=== PATIENT | female | born 1980 | race Two or more races ===

== ENCOUNTER 2022-05-14 02:25 | Inpatient (IN) | payer OTHER ==
[~2022-05-14] VITALS: Ht 157.5 cm; Wt 69.9 kg
[~2022-05-14 02:25] MED LIST: ALLEGRA ALLERG180 MG PO; LEVAQUIN750 MG PO
--- NOTE | 2022-05-14 02:34 | NUR ---
PATIENT IS RECIEVED SAYING THAT SHE FEELS DIZZY AND WEAK AFTER BEING DIAGNOSED WITH MYCOPLASM 5 DAYS AGO.
--- NOTE | 2022-05-14 03:05 | NUR ---
SE ORIENTA PTE SOBRE TX MEDICO EL CUAL REFIERE ENTENDER.SE LE EXTRAEN MUESTRAS BAJO MEDIDAS ASEPTICAS,SE CANALIZA Y SE ADMINISTRA MEDICAMENTO LILIANE ORDEN MEDICA.
--- NOTE | 2022-05-14 07:32 | NUR ---
SE RECIBE PTE DEL TURNO ANTERIOR, FEMINA DE 41 YRS ALERTA Y ORIENTADA X3 EN CAMA CON BARANDAS ELEVADAS X2 Y GIBSON DE IDENTIFICACION. PTE CON 0.9% NSS BAJANDO A 150 ML/HRS CON VENOPUNCION EN LA. PTE PENDIENTE A SONOGRAFIA ABDOMINAL.
== END 2022-05-17 20:48 | disposition home or self-care (01) | DRG 865 ==
LOC: ER 02:25 → MEDJ 21:47 → MEDI 05-16 14:11
PROVIDERS: ADMIT Internal Medicine; ATTEND Internal Medicine
PROC: BW21YZZ Computerized Tomography (CT Scan) of Abdomen and Pelvis using Other Contrast (ICD-10-PCS; principal; 2022-05-14)
DX: A91 Dengue hemorrhagic fever (principal); K65.8 Other peritonitis; K81.0 Acute cholecystitis; E86.0 Dehydration; D69.6 Thrombocytopenia, unspecified

== ENCOUNTER → 2023-09-28 | Day surgery (SDC) | payer OTHER ==
[~2023-09-28] MED LIST changes: +CEFAZOLIN SODIUM 1,000 MG VIAL IV ONE; +CEFAZOLIN SODIUM 1,000 MG VIAL ONE; +CLINDAMYCIN PHOSPHATE 150 MG/ML (600mg) IJ ONE; +CLINDAMYCIN PHOSPHATE 150 MG/ML (600mg) ONE; +EPINEPHRINE HCL/PF 1 MG/ML AMPUL IR ONE; +EPINEPHRINE HCL/PF 1 MG/ML AMPUL ONE; +GENTAMICIN SULFATE 40 MG/ML VIAL IJ ONE; +GENTAMICIN SULFATE 40 MG/ML VIAL ONE; +LIDOCAINE HCL 1% 200MG/20ML VIAL IJ ONE; +LIDOCAINE HCL 20 MG/1 ML VIAL 20ML ONE; +LIDOCAINE HCL IJ ONE; +POVIDONE-IODINE 118 ML BOTT TOP ONE; +VANCOMYCIN HCL 1,000 MG VIAL IR ONE; +VANCOMYCIN HCL 1,000 MG VIAL ONE
== END | disposition home or self-care (01) ==
LOC: ADM 09-25 15:00 → CIR.AMB 07:52
PROVIDERS: ATTEND Specialist
DX: E88.1 Lipodystrophy, not elsewhere classified (principal); E65 Localized adiposity